=== PATIENT | male | born 1950 | race Caucasian/White ===

== ENCOUNTER 2019-11-22 20:06 | Emergency (ER) | payer MEDICARE, MEDICAID ==
[~2019-11-22] VITALS: Ht 182.9 cm; Wt 61.2 kg
[~2019-11-22 20:06] MED LIST: DOXYCYCLINE 10100 MG PO
[2019-11-22 20:59] LABS: ABSOLUTE BASOPHILS 0.1 thou/uL (0.0-0.2); ABSOLUTE LYMPHOCYTES 1.7 thou/uL (0.8-5.3); ABSOLUTE MONOCYTES 0.6 thou/uL (0.0-1.2); ABSOLUTE NEUTROPHILS 8.6 thou/uL (1.6-8.1); BASOPHILS 0.5 %; EOSINOPHILS 0.3 %; HEMOGLOBIN 14.1 gm/dL (14.0-18.0); LYMPHOCYTES 15.7 %; MCH 29.8 pg (26.0-34.0); MCHC 33.5 g/dL (28.0-37.0); MCV 88.9 fL (80.0-100.0); MONOCYTES 5.4 %; MPV 8.2 fl. (7.2-11.1); NUCLEATED RBCS 0 /100WBC; PLATELET COUNT* 258 thou/uL (150-400); POLYS 78.1 %; RBC 4.73 mil/uL (4.50-6.00); RDW-CV 13.6 % (10.5-14.5); WBC 11.1 thou/uL (4.0-11.0)
[2019-11-22 21:10] LABS: CALCIUM 8.5 mg/dL (8.5-10.1); CREATININE 1.3 mg/dL (0.6-1.3); POTASSIUM 3.6 mmol/L (3.5-5.1)
[2019-11-22 21:15] LABS: ALBUMIN 3.8 g/dL (3.4-5.0); TOTAL BILIRUBIN 0.8 mg/dL (<0.1-1.0); TOTAL PROTEIN 7.3 g/dL (6.4-8.2)
[2019-11-22 21:15] LABS: URINE BILIRUBIN NEGATIVE (Negative); URINE BLOOD 3+ (Negative); URINE CLARITY CLEAR; URINE COLOR YELLOW; URINE GLUCOSE-RANDOM NEGATIVE (Negative); URINE KETONES NEGATIVE (Negative); URINE LEUKOCYTES-REFLEX NEGATIVE (Negative); URINE NITRITE-REFLEX NEGATIVE (Negative); URINE PROTEIN TRACE (Negative); URINE UROBILINOGEN 0.2 E.U./dl (0.2-1.0)
[2019-11-22 21:35] LABS: SQUAMOUS 0-3 Few /LPF (0-3); URINE WBC-REFLEX 0-5 Rare /HPF (0-5)
[2019-11-22 21:36] LABS: BACTERIA-REFLEX 1-9 Few /HPF (None Seen); CASTS None Seen /LPF (None Seen); CRYSTALS None Seen /LPF (None Seen); URINE RBC >20 Many /HPF (0-2)
[2019-11-22 22:21] VITALS: BP 161/72
== END 2019-11-22 22:23 | disposition home or self-care (01) ==
LOC: M.ERS 20:06
PROVIDERS: Personal Emergency Response Attendant
DX: R33.9 Retention of urine, unspecified (principal)

== ENCOUNTER 2020-01-04 20:35 | Emergency (ER) | payer MEDICARE, MEDICAID ==
[~2020-01-04] VITALS: Ht 185.4 cm; Wt 54.4 kg
[2020-01-04] MEDS ORDERED: REMERON15 M2 PO (20:48)
[2020-01-04] MEDS ORDERED: FLOMAX0.4 MG PO (20:49)
[2020-01-04] MEDS ORDERED: LIPITOR10 MG PO (20:49)
[2020-01-04] MEDS ORDERED: LISINOPRIL2.5 MG PO (20:50)
[2020-01-04 21:25] LABS: URINE BILIRUBIN NEGATIVE (Negative); URINE BLOOD 3+ (Negative); URINE CLARITY CLEAR; URINE COLOR YELLOW; URINE GLUCOSE-RANDOM NEGATIVE (Negative); URINE KETONES NEGATIVE (Negative); URINE LEUKOCYTES-REFLEX 1+ (Negative); URINE NITRITE-REFLEX NEGATIVE (Negative); URINE PROTEIN NEGATIVE (Negative); URINE SPECIFIC GRAVITY <= 1.005 (1.005-1.030); URINE UROBILINOGEN 0.2 E.U./dl (0.2-1.0)
[2020-01-04 21:31] LABS: CALCIUM 8.7 mg/dL (8.5-10.1); CREATININE 1.5 mg/dL (0.6-1.3); POTASSIUM 3.7 mmol/L (3.5-5.1)
[2020-01-04 21:33] LABS: CASTS None Seen /LPF (None Seen); SQUAMOUS NONE SEEN /LPF (0-3)
[2020-01-04 21:34] LABS: URINE RBC 3-10 Few /HPF (0-2); URINE WBC-REFLEX 0-5 Rare /HPF (0-5)
[2020-01-04 21:35] LABS: CRYSTALS None Seen /LPF (None Seen)
[2020-01-04] MEDS ORDERED: KEFLEX500 M1 PO (21:40)
[2020-01-04 21:49] VITALS: BP 149/98
== END 2020-01-04 21:50 | disposition home or self-care (01) ==
LOC: M.ERS 20:35
PROVIDERS: Emergency Medicine Emergency Medical Services
DX: R33.9 Retention of urine, unspecified (principal)